=== PATIENT | female | born 1985 | race Caucasian/White ===

== ENCOUNTER 2018-11-05 19:51 | Emergency (ER) | payer OTHER ==
[~2018-11-05] VITALS: Ht 172.7 cm; Wt 136.1 kg
[2018-11-05 19:59] VITALS: BP 143/89
[2018-11-05] MEDS ORDERED: TRAMADOL 50 MG50 MG PO (20:31)
[2018-11-05] MEDS ORDERED: PENICILLIN V P500 MG PO (20:31)
[2018-11-05] MEDS ORDERED: IBUPROFEN 800800 M1 PO (20:31)
== END 2018-11-05 20:34 | disposition home or self-care (01) ==
LOC: M.ERS 19:51
DX: K02.9 Dental caries, unspecified (principal); R59.1 Generalized enlarged lymph nodes; F17.210 Nicotine dependence, cigarettes, uncomplicated

== ENCOUNTER 2019-10-24 13:09 | Emergency (ER) | payer OTHER ==
[~2019-10-24] VITALS: Ht 170.2 cm; Wt 136.1 kg
[~2019-10-24 13:09] MED LIST: IBUPROFEN 800800 M1 PO; PENICILLIN V P500 MG PO; TRAMADOL 50 MG50 MG PO
[2019-10-24 13:22] VITALS: BP 120/89
[2019-10-24] MEDS ORDERED: LIDOCAINE VISC100 ML SWISH&SPIT (13:39)
[2019-10-24] MEDS ORDERED: AMOXICILLIN 50500 MG PO (13:39)
== END 2019-10-24 13:47 | disposition home or self-care (01) ==
LOC: M.ERS 13:09
DX: K04.7 Periapical abscess without sinus (principal); K03.81 Cracked tooth; F17.210 Nicotine dependence, cigarettes, uncomplicated